=== PATIENT | male | born 1965 | race Caucasian/White ===

== ENCOUNTER 2017-04-05 11:39 | Emergency (ER) | payer OTHER ==
[~2017-04-05] VITALS: Ht 172.7 cm; Wt 135.0 kg
[2017-04-05 11:56] VITALS: BP 170/96; PULSE 60; RESP 16; O2SAT 95
[2017-04-05] MEDS ORDERED: 0.9% Sodium Chloride Inhalation Solution ONE (13:42)
[2017-04-05] MEDS ORDERED: Fluorescein 0.6 mg Ophthalmic Strip ONE (13:42)
--- NOTE | 2017-04-05 14:51 | ED.REPORT ---
HPI-Eye Problem Date of Service Apr 05, 2017 ED Provider: Doc,Ed MD History of Present Illness: 51-year-old male here sent from the urgent care for left eye foreign body sensation and pain. Started yesterday sitting on the couch, no known foreign bodies in his eye. He states he has slightly blurry vision. He states his eyes are sensitive but not necessarily light-sensitive. No fevers. Feels like there something in his eye.He has been rubbing his eyes a lot as they are itchy. Does not wear contacts. Denies floaters in vision. Nursing Notes Stated Complaint: EYE Chief Complaint: Eye Scheduled Ciprofloxacin Ophth Soln (Ciprofloxacin Ophth Soln) 2.5 Ml Drops 2 DROP LEFT_ EYE QID General Time Seen by MD: 14:50 Chief Complaint Left eye affected Hx Obtained From: Patient Onset Occurred: Yesterday Symptom Duration: Waxes and wanes Context: Occurred at: Home Location: : Eye left Severity: Current: Moderate Severity: Maximum: Moderate Associated with: Reports: Eye tearing Pertinent Negative: Pt denies other symptoms Similar Sx Previous: No Past Medical History Past Medical History Notes: Hypertension Review of Systems Basic Review of Systems Respiratory: No shortness of breath, No cough, No wheeze Cardiovascular: No chest pain, No dyspnea on exertion, No orthopnea, No parox noct dyspnea, No palpitations GI: No abdominal pain, No anorexia, No nausea, No vomiting Allergy / Immune: No allergy Psychiatric: Normal thought content Constitutional: Denies: Fever Eyes: Reports: Blurred left, Eye pain left, Denies: Photophobia Complete sys rev & neg: except as marked. Physical Exam Initial Vital Signs Vital Signs (First) Date Time Temp Pulse Resp B/P Pulse Ox O2 Delivery O2 Flow Rate FiO2 04/05/17 11:56 36.7 60 16 170/96 95 Room Air Initial VS: Reviewed, Vital signs normal General / Const: Well-developed, Well-nourished ENT: Mucous membranes moist, Conjunctiva normal, No scleral icterus Neck: Supple, Non-tender, Full range of motion Respiratory: Breath sounds normal, Clear to auscultation, No respiratory distress Cardiovascular: Regular rate & rhythm, Heart sounds normal, Intact distal pulses Skin: Warm, Dry, No cyanosis Neurologic: Alert, Oriented, Nonfocal Psychiatric: Mood/affect normal, Behavior normal, Normal thought content Head / Eyes: Atraumatic, Normocephalic, PERRL, EOMI, No nystagmus, No periorbital swelling, No photophobia, Eyelids NL, Temporal arteries NL Left conjunctiva erythematous and injected. Teary discharge noted. At about 3:00 there is a corneal ulceration. General/Constitutional: Awake, Alert, Well appearing ENT: Airway patent, Mucous membranes moist, Pharynx NL Skin: Color NL, No rash, Warm, Dry, Turgor NL Neurologic: Oriented X3, Speech NL, No motor deficits, No sensory deficits Respiratory / Chest: Atraumatic, Breath sounds NL, No respiratory distress Cardiovascular: Heart rate NL, Regular rhythm, Heart sounds NL, No gallop, No murmurs, No rubs Procedures Procedure Notes: Tetracaine used an eye, this gave him relief. There was uptake at about 3:00 appears to be a large ulceration. No foreign body noted. No foreign body with lid eversion either Discharge & Departure Shift Change Sign-Out Response to Therapy: Improved Primary Impression: Corneal ulcer of left eye Disposition: Home Discharge Condition All VS Reviewed: Yes Condition: Stable Patient Instructions: Corneal Abrasion (ED) Additional Instructions: Use your antibiotic drops as prescribed. Return in 24-48 hours if her symptoms are worsening. Return immediately if acute visual loss, fevers, severe eye pain. Otherwise he must see ophthalmology on Friday morning. Call number given for next available appointment. Rest eye, ibuprofen or Tylenol as needed for pain. Referrals: Lucio Wilson MD (PCP) EDSupervising Provider for APC: Rishi Marx MD, Linnea K ARNP Apr 05, 2017 14:51
[2017-04-05] MEDS ORDERED: Tetracaine 0.5% 4 mL Ophthalmic Solution LEFT_EYE ONE (15:00)
[2017-04-05] MEDS ORDERED: CIPR2.5D LEFT_EYE (16:22)
== END 2017-04-05 16:29 | disposition home or self-care (01) ==
LOC: SED 11:39
DX: H16.002 Unspecified corneal ulcer, left eye (principal); I10 Essential (primary) hypertension